=== PATIENT | male | born 1970 | race Caucasian/White ===

== ENCOUNTER 2022-06-27 15:25 | Emergency (ER) | payer BC ==
[2022-06-27] MEDS ORDERED: Aspirin 81 MG Tab.Chew PO ONE (15:27)
[2022-06-27] MEDS ORDERED: Sodium Chloride 0.9% 10 ML Syringe FLUSH PRN (15:27)
[2022-06-27] MEDS ORDERED: Nitroglycerin 2% Oint 1 GM UD Packet TOP ONE (15:59)
[2022-06-27 16:09] LABS: ANION GAP 11.4 mmol/L (5-15)
== END 2022-06-27 20:05 | disposition home or self-care (01) ==
LOC: KA.ED 15:25
DX: R07.2 Precordial pain (principal); I16.0 Hypertensive urgency; Z88.0 Allergy status to penicillin; Z79.899 Other long term (current) drug therapy
CPT/HCPCS: 36415; 71045; 80053; 84484; 85025; 93005; 99285; A9270